=== PATIENT | male | born 1995 | race African-American/Black ===

== ENCOUNTER 2020-08-09 11:42 | Emergency (ER) | payer MEDICAID, SELFPAY ==
[2020-08-09 11:43] VITALS: BP 156/83; PULSE 83; RESP 16; O2SAT 96; BMI 28.5
--- NOTE | 2020-08-09 12:02 | CT_ITS ---
PROCEDURE: CT ABDOMEN PELVIS W CON CLINICAL INDICATION: ABD PAIN Lower abdominal pain with nausea vomiting and diarrhea COMPARISON: No exams were available for comparison TECHNIQUE: IV Contrast: 75ML Isovue 370 Oral Contrast None Axial images obtained with sagittal and coronal reformats. All CT scans at the facility use one or more dose reduction, viz: automated exposure control, ma/kV adjustment per patient size (including targeted exams where dose is matched to indication, i.e. head), or iterative reconstruction technique. FINDINGS: LOWER THORAX: Patchy ground-glass density is present in the right middle lobe incompletely imaged. ABDOMEN & PELVIS: The liver, gallbladder, spleen, adrenal glands, and pancreas have an unremarkable appearance. No renal or ureteral calculi. No hydronephrosis. No intestinal obstruction or free air. No evidence of appendicitis. There is mild diffuse thickening of the colon. There is also mild thickening of the stomach. No acute bony anomaly. IMPRESSION: Mild diffuse thickening of the wall the colon consistent with colitis. There is also mild thickening of the wall the stomach which could be related to gastritis or nondistention Dictated by: Derrick Lebron MD 08/09/2020 18:28 Derrick Lebron MD in [place] 08/09/2020 18:28
[2020-08-09 12:20] LABS: Basophils # 0.2 K/mm3 (0-0.2); Basophils % 0.8 % (0.1-2.0); Eosinophils # 0.2 K/mm3 (0.0-0.4); Eosinophils % 0.9 % (0.1-12.0); Hematocrit 52.4 % (42.0-52.0); Hemoglobin 16.7 g/dL (14.1-18.0); Lymphocytes # 1.9 K/mm3 (0.7-4.5); Lymphocytes % 7.5 % (10-50); Mean Corpuscular HGB Conc 31.8 g/dL (31.8-35.4); Mean Corpuscular Hemoglobin 26.4 pg (27.0-31.2); Mean Platelet Volume 16.2 fl (7.4-10.4); Monocytes # 0.9 K/mm3 (0.1-1.0); Monocytes % 3.5 % (1.7-9.3); Neutrophils # 21.5 K/mm3 (1.8-7.8); Neutrophils % 87.2 % (37.0-80.0); Platelet Count 200 K/mm3 (142-424); Red Blood Count 6.32 M/mm3 (4.60-6.20); Red Cell Distribution Width 18.1 % (11.5-17.5); White Blood Count 24.6 K/mm3 (4.8-10.8)
[2020-08-09 12:24] LABS: Chloride 101 mmol/L (98-107); Sodium 140 mmol/L (136-145)
[2020-08-09 12:25] LABS: MANUAL DIFFERENTIAL MANUAL DIFFERENTIAL (MANUAL DIFF); Potassium 3.4 mmoL/L (3.5-5.1)
[2020-08-09 12:27] LABS: Alanine Aminotransferase 63 U/L (12-78); Alkaline Phosphatase 77 U/L (38-126); Amylase 121 U/L (30-110); Anion Gap 18.4 mEq/L (5-15); Aspartate Amino Transferase 57 U/L (17-59); Bilirubin,Total 1.8 mg/dl (0.2-1.3); Blood Urea Nitrogen 14 mg/dl (9-20); Calcium 10.1 mg/dl (8.4-10.2); Carbon Dioxide 24 mmol/L (22.0-30.0); Creatinine Clearance Estimated 168 mL/min (50-200); Estimated Glomerular Filt Rate 102 ml/min (>60); GFR (African American) 123 ML/MIN (>60); Glucose 156 mg/dl (74-100); Lipase 77 U/L (23-300)
[2020-08-09 12:28] LABS: Albumin Level 5.3 g/dl (3.5-5.0); Albumin/Globulin Ratio 1.4 (1.1-1.8); Globulin 3.7 g/dL (1.3-3.2)
[2020-08-09 12:33] LABS: Lymphocytes % 10 % (10-50); Monocytes % 4 % (2-9); Neutrophils % 86 % (42-76); Total Cells Counted 100
[2020-08-09 12:34] LABS: Platelet Estimate Normal; RBC Morphology Normal
--- NOTE | 2020-08-09 15:06 | HMH.EDABDPAI ---
ED Disposition Clinical Impression: Colitis Disposition: Home, Self-Care Condition on Discharge: Good Instructions: DI for Acute Abdomen, Acute Abdominal Pain Additional Instructions: You were seen on an emergency basis. It is very important that you follow up with your primary care provider and/or specialist as we discussed within 2 days. All labs and imaging were obtained and interpreted here to rule out life threatening emergencies, but your final results should be reviewed by your primary doctor at your follow up appointment. Please return to the emergency department if any of your symptoms worsen, or if they do not improve as we discussed. Prescriptions: Amoxicillin/Potassium Clav [Augmentin 875-125 Tablet] 1 tab PO Q12H 10 Days #20 tab Prescription Printed Ondansetron [Zofran 4mg ODT] 4 mg PO Q6 PRN #9 tab.rapdis PRN Reason: Nausea Prescription Printed Referrals: PCP,Uzma [Primary Care Provider] - Luther Ulloa MD [Staff Physician] - - Critical Care Critical Care Time: No Attestation: On 08/09/20, the high probability of a clinically significant, sudden or life threatening deterioration of the following system(s) required my full and direct attention, intervention and personal management. The time I documented below is in addition to time spent performing reported procedures but includes the following listed in this critical care notation. Medical Decision Making - Medical Records Medical records reviewed: Yes: I reviewed the patient's medical records. - Carlos Inquiry Pt receiving controlled substance: No Vital Signs: 08/09/20 11:43 Pulse Rate [Radial] 83 Respiratory Rate 16 Blood Pressure [Right Arm] 156/83 H Blood Pressure Mean [Right Arm] 107 Blood Pressure Position [Right Arm] Sitting 02 Sat by Pulse Oximetry 96 Oxygen Delivery Method Room Air - Lab Data Lab results reviewed: Yes: I reviewed the patient's lab results. Lab Results 08/09/20 12:05: WBC 24.6 H*, RBC 6.32 H, Hgb 16.7, Hct 52.4 H, MCV 83.0, MCH 26.4 L, MCHC 31.8, RDW 18.1 H, Plt Count 200, MPV 16.2 H, Neut % (Auto) 87.2 H, Lymph % (Auto) 7.5 L, Rosebud % (Auto) 3.5, Eos % (Auto) 0.9, Baso % (Auto) 0.8, Neut # (Auto) 21.5 H, Lymph # (Auto) 1.9, Rosebud # (Auto) 0.9, Eos # (Auto) 0.2, Baso # (Auto) 0.2, Total Counted 100, Neutrophils % (Manual) 86 H, Lymphocytes % (Manual) 10, Monocytes % (Manual) 4, Platelet Estimate Normal, RBC Morphology Normal 08/09/20 12:05: Sodium 140, Potassium 3.4 L, Chloride 101, Carbon Dioxide 24, Anion Gap 18.4 H, BUN 14, Creatinine 0.90, Estimated Creat Clear 168, Estimated GFR 102, Est GFR ( Amer) 123, Glucose 156 H, Calcium 10.1, Total Bilirubin 1.8 H, AST 57, ALT 63, Alkaline Phosphatase 77, Total Protein 9.0 H, Albumin 5.3 H, Globulin 3.7 H, Albumin/Globulin Ratio 1.4, Amylase 121 H, Lipase 77 Result diagrams: 08/09/20 12:05 08/09/20 12:05 Orders (Tests/Meds): ED MEDICATIONS Discontinued Medications Generic Name Dose Route Start Last Admin Trade Name Freq PRN Reason Stop Dose Admin Amoxicillin/Clavulanate Potassium 1 each 08/09/20 14:57 08/09/20 15:03 Amoxicillin/Pot Clavulan 500mg Tablet PO 08/09/20 14:58 1 each ONCE ONE Administration Protocol Belladonna Alkaloids 60 ml 08/09/20 12:11 08/09/20 12:12 Gi Cocktail 60ml Udc PO 08/09/20 12:12 60 ml ONCE ONE Administration Sodium Chloride 1,000 mls @ 999 mls/hr 08/09/20 12:15 08/09/20 12:08 Sod Chlor 0.9% 1000ml Bag IV 08/09/20 13:15 999 mls/hr .Q1H1M ELIZABETH Administration Iopamidol 75 ml 08/09/20 13:07 08/09/20 13:08 Iopamidol-370 (76%);100ml Bottle IV 08/09/20 13:08 75 ml ONCE ONE Administration Ondansetron HCl 4 mg 08/09/20 12:03 08/09/20 12:07 Ondansetron 4mg/2ml Vial IV 08/09/20 12:04 4 mg ONCE ONE Administration Promethazine HCl 12.5 mg 08/09/20 13:55 08/09/20 13:56 Promethazine Hcl 25mg/Ml 1ml Vial IV 08/09/20 13:56 12.5 mg ONCE ONE Administ
[2020-08-09 15:08] LABS: Microscopic, Urine URINE MICROSCOPIC (MICROSCOPIC)
[2020-08-09 15:14] LABS: Appearance,Urine CLEAR (Clear); Bilirubin,Urine Negative (Negative); Blood, Urine Negative (Negative); Color,Urine YELLOW (Yellow); Glucose,Urine (UA) Negative (Negative); Ketones,Urine 1+ (Negative); Leukocyte Esterase,Urine Negative (Negative); Nitrate,Urine Negative (Negative); Protein,Urine Negative (Negative); Specific Gravity, Urine 1.015 (1.005-1.030); Urobilinogen,Urine 0.2 EU/dl (0.2)
[2020-08-09 15:26] LABS: Squamous Epithelial Cell,Urine Occasional #/hpf (0-5); WBC,Urine Occasional #/hpf (0-3)
[2020-08-09 15:42] VITALS: BP 124/77; PULSE 71; RESP 18; O2SAT 100
--- NOTE | 2020-08-09 15:58 | PC.NURSE ---
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
[2020-08-09 16:12] VITALS: BP 163/98; PULSE 71; RESP 18; O2SAT 97
--- NOTE | 2020-08-09 18:52 | PC.NURSE ---
PT CONTINUES TO C/O NAUSEA, VOMITING. PT STATES I'M REALLY STRUGGLING .
[2020-08-09 19:18] VITALS: BP 124/75; PULSE 78; RESP 16; TEMP 36.8; O2SAT 98
== END 2020-08-09 19:21 | disposition home or self-care (01) ==
PROVIDERS: Emergency Provider Physician Assistant
DX: K52.9 Noninfective gastroenteritis and colitis, unspecified (principal)
CPT/HCPCS: 74177; 80053; 81001; 82150; 83690; 85007; 85025; 96365; 96375; 96376; 99283; J2405; Q9967

== ENCOUNTER 2023-05-01 18:54 | Emergency (ER) | payer SELFPAY ==
[2023-05-01 18:54] VITALS: BP 130/91; PULSE 110; RESP 24; TEMP 36.9; O2SAT 97; BMI 26.2
[2023-05-01 19:06] VITALS: BMI 36.8
--- NOTE | 2023-05-01 19:07 | ECG_ITS ---
APPROVED REPORT Exam: Resting ECG HR:137 bpm ECG Measurements Heart Rate 137 AXES MO 138 P 76 QRSd 94 QRS 14 QT 348 T 74 QTc 428 Conclusion SINUS TACHYCARDIA INDETERMINATE AXIS MODERATE ST DEPRESSION [0.05+ mV ST DEPRESSION] ABNORMAL ECG UNCONFIRMED REPORT Electronically signed by : Hans Pulliam MD 05/02/2023 19:53:53
--- NOTE | 2023-05-01 19:07 | XR_ITS ---
PROCEDURE INFORMATION: Exam: XR Chest Exam date and time: 05/01/23 07:10 PM Age: 27 years old Clinical indication: Chest wall pain; Additional info: Chest pain TECHNIQUE: Imaging protocol: Radiologic exam of the chest. Views: 1 view. COMPARISON: CT ABDOMEN PELVIS W CON 08/09/20 12:43 PM FINDINGS: Lungs: Unremarkable. No consolidation. Pleural spaces: Unremarkable. No pleural effusion. No pneumothorax. Heart/Mediastinum: Unremarkable. No cardiomegaly. Bones/joints: Unremarkable. IMPRESSION: No acute findings.
[2023-05-01 19:13] LABS: Basophils % 0.4 % (0.1-2.0); Eosinophils # 0.1 K/mm3 (0.0-0.4); Eosinophils % 1.2 % (0.1-12.0); Hematocrit 50.3 % (42.0-52.0); Hemoglobin 16.5 g/dL (14.1-18.0); Lymphocytes # 1.9 K/mm3 (0.7-4.5); Lymphocytes % 15.9 % (10-50); Mean Corpuscular HGB Conc 32.8 g/dL (31.8-35.4); Mean Corpuscular Hemoglobin 25.7 pg (27.0-31.2); Mean Corpuscular Volume 78.5 fl (80-94); Mean Platelet Volume 8.5 fl (7.4-10.4); Monocytes # 0.8 K/mm3 (0.1-1.0); Monocytes % 7.1 % (1.7-9.3); Neutrophils % 75.5 % (37.0-80.0); Platelet Count 252 K/mm3 (142-424); Red Blood Count 6.41 M/mm3 (4.60-6.20); Red Cell Distribution Width 14.8 % (11.5-17.5); White Blood Count 11.9 K/mm3 (4.8-10.8)
[2023-05-01 19:14] VITALS: PULSE 112
[2023-05-01 19:14] LABS: Chloride 100 mmol/L (98-107)
[2023-05-01 19:15] LABS: Potassium 3.3 mmoL/L (3.5-5.1); Sodium 135 mmol/L (136-145)
[2023-05-01 19:17] LABS: Alanine Aminotransferase 61 U/L (12-78); Albumin Level 5.3 g/dl (3.5-5.0); Albumin/Globulin Ratio 1.3 (1.1-1.8); Alkaline Phosphatase 113 U/L (38-126); Anion Gap 18.3 mEq/L (5-15); Aspartate Amino Transferase 155 U/L (17-59); Bilirubin,Total 2.5 mg/dl (0.2-1.3); Blood Urea Nitrogen 23 mg/dl (9-20); Carbon Dioxide 20 mmol/L (22.0-30.0); Creatinine Clearance Estimated 116 mL/min (50-200); Estimated Glomerular Filt Rate 65 ml/min (>60); GFR (African American) 79 ML/MIN (>60); Globulin 4.2 g/dL (1.3-3.2); Total Protein,Serum 9.5 g/dl (6.3-8.2)
[2023-05-01 19:18] LABS: Calcium 10.5 mg/dl (8.4-10.2); Glucose 164 mg/dl (74-100)
[2023-05-01 19:30] LABS: Troponin I < 0.01 ng/ml (0.00-0.034)
--- NOTE | 2023-05-01 19:34 | CT_ITS ---
PROCEDURE INFORMATION: Exam: CT Abdomen And Pelvis With Contrast Exam date and time: 05/01/23 07:45 PM Age: 27 years old Clinical indication: Abdominal pain; Generalized; Additional info: Severe epigastric abd pain, n/v TECHNIQUE: Imaging protocol: Computed tomography of the abdomen and pelvis with contrast. Radiation optimization: All CT scans at this facility use at least one of these dose optimization techniques: automated exposure control; mA and/or kV adjustment per patient size (includes targeted exams where dose is matched to clinical indication); or iterative reconstruction. Contrast material: ISOVUE; Contrast volume: 75 ml; Contrast route: IV; REPORTING DATA: Count of CT and Cardiac NM exams in prior 12 months: This patient has received 0 known CTs and 0 known cardiac nuclear medicine studies in the 12 months prior to the current study. COMPARISON: CT ABDOMEN PELVIS W CON 08/09/20 12:43 PM FINDINGS: Tubes, catheters and devices: None noted. Lungs: Lung bases appear clear. Heart: No significant coronary calcifications. No cardiomegaly. No significant pericardial effusion. Liver: Normal. No mass. Gallbladder and bile ducts: Normal. No calcified stones. No ductal dilation. Pancreas: Normal. No ductal dilation. Spleen: Normal. No splenomegaly. Adrenal glands: Normal. No mass. Kidneys and ureters: Normal. No hydronephrosis. Stomach and bowel: Unremarkable. No obstruction. No mucosal thickening. Appendix: Appendix is well visualized. No evidence of appendicitis. Intraperitoneal space: Unremarkable. No free air. No significant fluid collection. Retroperitoneal space: No significant retroperitoneal inflammatory changes are noted. Vasculature: Unremarkable. No abdominal aortic aneurysm. Lymph nodes: Unremarkable. No enlarged lymph nodes. Urinary bladder: Unremarkable as visualized. Reproductive: Unremarkable as visualized. Bones/joints: Unremarkable. No acute fracture. Soft tissues: Unremarkable. IMPRESSION: No acute findings.
--- NOTE | 2023-05-01 19:40 | PC.NURSE ---
PT gone to RAD via wheelchair
[2023-05-01 19:41] LABS: Lipase 106 U/L (23-300)
[2023-05-01 19:42] LABS: INR 0.99 (0.9-1.1); Prothrombin Time 10.7 seconds (10.1-12.5)
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
[2023-05-01 20:00] VITALS: BP 140/96; PULSE 59; RESP 13; O2SAT 100
[2023-05-01 20:31] VITALS: BP 116/66; PULSE 78; RESP 16; O2SAT 100
[2023-05-01 21:00] VITALS: BP 110/57; PULSE 71; RESP 16; O2SAT 96
[2023-05-01 21:36] VITALS: BP 114/79; PULSE 74; RESP 16; TEMP 36.6
== END 2023-05-01 21:38 | disposition home or self-care (01) ==
PROVIDERS: Emergency Provider Student in an Organized Health Care Education/Training Program
DX: R07.89 Other chest pain (principal); K70.10 Alcoholic hepatitis without ascites; R11.2 Nausea with vomiting, unspecified; F17.210 Nicotine dependence, cigarettes, uncomplicated
CPT/HCPCS: 71045; 74177; 80053; 83690; 84484; 85025; 85610; 93005; 96361; 96374; 96375; 99285; J2405; Q9967

== ENCOUNTER 2023-09-04 01:28 | Emergency (ER) | payer SELFPAY ==
[2023-09-04 01:30] VITALS: BP 151/77; PULSE 92; RESP 18; TEMP 36.5; O2SAT 98; BMI 28.0
[2023-09-04 03:26] VITALS: BP 109/59; PULSE 72; RESP 16; TEMP 36.7; O2SAT 98
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
== END 2023-09-04 03:28 | disposition home or self-care (01) ==
PROVIDERS: Emergency Provider Emergency Medicine
DX: Z04.1 Encounter for examination and observation following transport accident (principal)
CPT/HCPCS: 99281

== ENCOUNTER 2025-02-22 04:51 | Emergency (ER) | payer MEDICAID, SELFPAY ==
[2025-02-22 05:01] VITALS: BP 153/92; PULSE 110; RESP 16; TEMP 36.6; O2SAT 99; BMI 28.7
--- NOTE | 2025-02-22 05:11 | XR_ITS ---
PROCEDURE INFORMATION: Exam: XR Right Knee Exam date and time: 02/22/2025 5:27 AM Age: 29 years old Clinical indication: Pain; Knee; Right; Additional info: Swelling, poss patellar dislocation/tendon rupture TECHNIQUE: Imaging protocol: Radiologic exam of the right knee. Views: 4 or more views. COMPARISON: No relevant prior studies available. FINDINGS: Bones/joints: Bony excrescence is noted along the femoral origin of the medial collateral ligament. The medial collateral ligament appears thickened and hyperattenuating by radiographic standards. Thickened patellar tendon with adjacent peritendinous subcutaneous inflammatory change. Patellar appears significantly superior in positioning. Soft tissues: See Bones/joints finding. IMPRESSION: 1. Findings suggestive of complete patellar tendon rupture. MRI should be obtained for confirmation. 2. Acute on chronic injury appearance of the medial collateral ligament. Attention on follow-up recommended MRI.
--- NOTE | 2025-02-22 05:14 | HMH.EDGENADL ---
Discharge Plan Disposition Patient Disposition: Home, Self-Care Condition: Good Prescriptions Prescriptions: New oxycodone 5 mg tablet 5 mg PO Q8H PRN (Reason: pain) Qty: 6 0RF No Action amoxicillin-pot clavulanate 1 EACH tablet 1 tab PO Q12H 10 Days Qty: 20 0RF ondansetron 4 MG tablet,disintegrating 4 mg PO Q6 PRN (Reason: Nausea) Qty: 9 0RF ondansetron 4 mg tablet,disintegrating 4 mg PO Q6H PRN (Reason: nausea and vomiting) 5 Days Qty: 20 0RF Referrals Follow up/Referrals: Alfredito Domingo, [Staff Physician] - See instructions Provider,Referral, [Primary Care Provider] - See instructions Activity Restrictions/Add. Instructions Additional Instructions/Restrictions: Please follow-up with Ortho soon as possible. Please keep the knee immobilizer in place, please use crutches and do not bear weight on the knee until follow-up. Please take Tylenol and ibuprofen as needed for pain. I also sent a small amount of oxycodone for severe pain. Clinical Impressions Clinical Impression: Patellar tendon rupture Qualifiers: Encounter type: initial encounter Laterality: right Qualified Code(s): S86.811A - Strain of other muscle(s) and tendon(s) at lower leg level, right leg, initial encounter Print Language Print Language: Citizen Of [place] Discharge ED Provider: Cisco [place] General Adult HPI General Chief complaint: Extremity Injury, Lower Stated complaint: right knee cap dislocated Time Seen by Provider: 02/22/25 04:55 Mode of Arrival: Wheelchair Source of Information: Patient Description of Symptoms (Recalled from ER Triage Doc. by RN): patient fell while performing tonight and feels like his Right knee is dislocated History of Present Illness HPI narrative: 29-year-old male with no significant past medical history presents for right knee pain and swelling. 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 He has been unable to bear weight since that time. He denies any other injuries or significant trauma. Related Data Previous Rx's ?Medication ?Instructions ?Recorded amoxicillin 875 mg-potassium 1 tab PO Q12H 10 days #20 tabs 08/09/20 clavulanate 125 mg tablet ondansetron 4 mg disintegrating 4 mg PO Q6 PRN Nausea ##9 08/09/20 tablet ondansetron 4 mg disintegrating 4 mg PO Q6H PRN nausea and 05/01/23 tablet vomiting 5 days #20 tabs oxycodone 5 mg tablet 5 mg PO Q8H PRN pain #6 tabs 02/22/25 Allergies Allergy/AdvReac Type Severity Reaction Status Date / Time INGREDIENT: NO KNOWN - NO Allergy Unknown Uncoded 09/20/17 15:32 KNOWN DRUG ALLERGY [facility] Disclaimer: The information contained in this section may have been updated after the patient was seen, as this information can be updated by other users. Social History Smoking Status: Current every day smoker tobacco type: cigarettes packs per day: 0 alcohol intake: never current occupational status: other Travel in the last 8 weeks?: None household members: other housing: other Other Medical History Have you received the Flu Vaccine for this season: No Have you received the Pneumonia Vaccine: No ROS Obtained: Yes All systems reviewed & no additional complaints except as documented Physical Exam General General appearance: alert and in no apparent distress Head Head exam: atraumatic and normocephalic Eye Eye exam: Present normal appearance, PERRL and EOMI ENT ENT exam: Present normal oropharynx and normal external ear exam Neck Neck exam: Present normal inspection and full ROM Chest Chest inspection: Present normal inspection and symmetric chest wall rise; Absent tenderness Respiratory Respiratory exam: Present normal lung sounds bilaterally; Absent respiratory distress Cardiovascular Cardiovascular exam: Present regular rate and normal rhythm Abdominal Exam Abdominal exam: Present soft; Absent distention, tenderness or guarding Extremities Exam Extremities exam: Present other (Right lower extremity: High riding patella, no active or passive straight leg raise, significant joint effusion noted) Back Exam Back exam: Present normal inspection; Absent tenderness Neurological Exam Neurological exam: Present alert and oriented X3; Absent motor sensory deficit Psychiatric Psychiatric exam: Present normal affect and normal mood Skin Skin exam: Present warm, dry and normal color Lymphatic Lymphatic Findings: no adenopathy Medical Decision Making Medical Records Medical records reviewed: Yes I reviewed the patient's medical records. Screening: Per USPSTF and CDC recommendations, given the prevalence of disease in our region, it is our hospital?s policy to screen for HIV and viral Hepatitis for all patients aged 18 and over and those with ongoing risk factors. Carlos Inquiry Pt receiving controlled substance: No Carlos was queried for this patient: No Vital Signs: 02/22/25 05:01 02/22/25 06:04 Temperature 97.8 F 98 F Temperature Source Oral Oral Pulse Rate 87 Pulse Rate [Right Radial] 110 H Respiratory Rate 16 18 Blood Pressure 150/80 H Blood Pressure [Right Radial Artery] 153/92 H Blood Pressure Mean [Right Radial Artery] 112 Blood Pressure Source Automatic Cuff Blood Pressure Source [Right Radial Artery] Automatic Cuff Blood Pressure Position Sitting Blood Pressure Position [Right Radial Artery] Sitting 02 Sat by Pulse Oximetry 99 Oxygen Delivery Method Room Air Room Air Lab Data Lab results reviewed: Yes I reviewed the patient's lab results. Orders (Tests/Meds): ED MEDICATIONS Discontinued Medications Generic Name Dose Route Start Last Admin Trade Name Juliana PRN Reason Stop Dose Admin Acetaminophen 1,000 mg 02/22/25 05:11 02/22/25 05:21 Acetaminophen 500mg Tab PO 02/22/25 05:12 1,000 mg ONCE ONE Administration Ketorolac Tromethamine 30 mg 02/22/25 05:11 02/22/25 05:21 Ketorolac 30mg/Ml Vial IM 02/22/25 05:12 30 mg ONCE ONE Administration Morphine Sulfate 4 mg 02/22/25 05:11 02/22/25 05:22 Morphine 2mg/Ml Syringe IM 02/22/25 05:12 4 mg ONCE ONE Administration ORDERS Category Date Time Status XR knee RT 4V Stat Exams 02/22/25 05:11 Completed Medical Decision Narrative: 29-year-old male without significant past medical history presents with acute atraumatic knee pain, felt his knee pop and his patella move 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 History was obtained via interactive discussion with patient. On arrival, patient is [afebrile, hemodynamically stable, satting appropriately, alert, oriented x4, GCS 15], moving all extremities spontaneously. Full physical exam performed and significant for high riding patella, no ability to perform straight leg raise, significant knee effusion Differential includes but is not limited to patellar fracture, patellar tendon rupture, internal derangement of the knee. Patient was given IM Toradol and morphine, p.o. Tylenol for symptomatic management and correction of underlying abnormalities. Workup initiated including radiographs of the right knee and patella. On my independent interpretation of radiographs, the patella is high riding consistent with patella tendon rupture. Patient was placed in a knee immobilizer and given crutches with instructions to remain nonweightbearing and to call and follow-up with our orthopedic clinic as soon as possible. Patient was discharged with a short course of opiate pain medication due to significant pain and swelling in the knee. Return precautions given. Procedures Risk/Benefits of Procedure(s) Were Explained: Yes Critical Care Critical Care Time Critical Care Time: No
[2025-02-22] MEDS: KETOROLAC 30MG/ML VIAL 30 MG IM (05:21)
[2025-02-22] MEDS: ACETAMINOPHEN 500MG TAB 1000 MG PO (05:21)
[2025-02-22] MEDS: MORPHINE 2MG/ML SYRINGE 4 MG IM (05:22)
[2025-02-22 06:04] VITALS: BP 150/80; PULSE 87; RESP 18; TEMP 36.6; O2SAT 100
== END 2025-02-22 06:05 | disposition home or self-care (01) ==
PROVIDERS: Emergency Provider Emergency Medicine
DX: S86.811A Strain of other muscle(s) and tendon(s) at lower leg level, right leg, initial encounter (principal)
CPT/HCPCS: 73564; 96372; 99284; J1885; J2270

== ENCOUNTER 2025-03-18 14:36 | Outpatient (CLI) | payer MEDICAID, SELFPAY ==
[2025-03-18 15:09] LABS: Basophils % 0.7 % (0.1-2.0); Eosinophils # 0.1 Kmm3 (0.0-0.4); Eosinophils % 2.3 % (0.1-12.0); Hemoglobin 14.3 g/dL (14.1-18.0); Immature Granulocytes # 0.01 10^3uL; Immature Granulocytes % 0.2 %; Lymphocytes # 1.3 K/mm3 (0.7-4.5); Mean Corpuscular HGB Conc 33.3 g/dL (31.8-35.4); Mean Corpuscular Hemoglobin 26.4 pg (27.0-31.2); Mean Corpuscular Volume 79.3 fl (80-94); Mean Platelet Volume 10.7 fl (7.4-10.4); Monocytes # 0.5 K/mm3 (0.1-1.0); Monocytes % 8.4 % (1.7-9.3); Neutrophils # 3.8 K/mm3 (1.8-7.8); Neutrophils % 65.4 % (37.0-80.0); Nucleated Red Blood Cells # 0 10^3/uL; Nucleated Red Blood Cells % 0 %; Platelet Count 249 K/mm3 (142-424); Red Blood Count 5.42 M/mm3 (4.60-6.20); Red Cell Distribution Width-SD 40.1 fL; White Blood Count 5.7 K/mm3 (4.8-10.8)
[2025-03-18 15:29] LABS: Anion Gap 8.3 mEq/L (5-15); Carbon Dioxide 26 mmol/L (22.0-30.0); Chloride 106 mmol/L (98-107); Potassium 4.3 mmoL/L (3.5-5.1); Sodium 136 mmol/L (136-145)
[2025-03-18 15:30] LABS: Blood Urea Nitrogen 15 mg/dl (9-20); Calcium 10.5 mg/dl (8.4-10.2); Estimated Glomerular Filt Rate 78 ml/min (>60); GFR (African American) 94 ML/MIN (>60); Glucose 106 mg/dl (74-100)
== END 2025-03-18 23:59 | disposition home or self-care (01) ==
LOC: LAB 14:36
PROVIDERS: Visit Provider Orthopaedic Surgery
DX: S86.811A Strain of other muscle(s) and tendon(s) at lower leg level, right leg, initial encounter (principal)
CPT/HCPCS: 36415; 80048; 85025

== ENCOUNTER 2025-03-19 11:21 | Day surgery (SDC) | payer MEDICAID, SELFPAY ==
[2025-03-19] VITALS (9 sets, daily range): BP systolic 116–149; BP diastolic 67–85; PULSE 56–101; RESP 14–17; TEMP 36.4–36.8; O2SAT 96–99; BMI 28.7
[2025-03-19] MEDS: LACTATED RINGERS 1000ML 1,000 ML 100 ML IV (11:47)
[2025-03-19] MEDS: CEFAZOLIN SODIUM 2 GM in 0.9 % SODIUM CHLORIDE 100 ML IV (13:54)
--- NOTE | 2025-03-19 16:08 | EXP.OP.NOTE ---
Date of procedure: 03/19/25 Pre-op Diagnosis:: Right patella tendon rupture full-thickness tear Post-op Diagnosis:: Same Procedure performed:: Open repair of right patella tendon Surgeon:: Alfredito Domingo DO Vice President Of Talent Management(s):: Chilango AMOR Anesthesia: GETA Estimated blood loss (mL): 0 Operative findings:: Full-thickness patella tendon rupture at the distal pole of the patella Operative note:: Patient identified preoperatively. Right lower extremity marked with yes my initials. Underwent a block with anesthesia taken the operating room. Placed upon operating bed. Right lower extremity prepped and draped normal sterile fashion on the operating bed. Once prepped and draped final operative timeout performed to identify proper patient procedure and extremity. Everyone involved in the case agreed. There is no counter indications to beginning. He did receive preoperative antibiotics. Marking pen was used to make planned in midline incision of the anterior aspect of the knee. Esmarch was used to exsanguinate the extremity and pneumatic tourniquet inflated to 300 mmHg. Skin knife was used incise through skin careful dissection was taken down sharply to the soft tissues and then blunt dissection was taken down to expose full-thickness tearing of the patella tendon from the inferior pole of the patella. There was significant scarring around this area of the tendon which was debrided directly the free edge of the patella tendon was then identified and debrided the inferior aspect of the patella was also debrided for visualization. Subsequent repair was undertaken by placing locking alternating Krak?w stitches starting at the proximal aspect of the tendon with being distally and then back up proximally this was done on the medial aspect of the tendon. This process was then repeated for the lateral aspect of the tendon as well this gave to good repair stitches in both edges of the patella tendon at that time attention was brought to the inferior surface of the patella. Inferior surface of the patella was drilled with a drill for a 4.75 mm swivel lock anchor and tapped. Then repair was completed by syncing the swivel lock anchors into the inferior pole of patella and reducing patella tendon to the inferior surface of the patella. Irrigation wounds performed. Flexion up to 40 degrees was taken very stable no gapping of the repair. Attention is then brought to repair of the retinaculum which was performed under direct suturing with the #2 FiberWire suture. Irrigation repeated deep layers closed with 0 Vicryl subcutaneous with 2-0 Vicryl surgical clips in the skin for closure sterile knee dressing placed and placed in a extension brace which will be exchanged for T ROM brace in recovery room. Locked in extension. Condition: stable Disposition: PACU Complications:: None apparent
--- NOTE | 2025-03-19 16:11 | P.PNANES_ITS ---
[facility] Anesthesia Record Part I Anesthesia Record I Intake, IV Amount: 800 Hydration: Adequate Estimated blood loss (mL): 0 Urine output (mL): 0 Blood Products used (#): none Blood Pressure: 128/70 SaO2: 99 Pulse Rate: 58 Airway Patency: Patent Respiratory Rate: 14 Temperature: 97.5 F Patient is:: Oral/Nasal airway and Somnolent Stable to PACU at:: 16:08
--- NOTE | 2025-03-19 17:36 | SUR.PHASEII ---
unable to make follow up appointment for pt d/t being after hours and clinic was closed. instructions given to pt's significant other to call 1st thing in the morning to schedule. s/o verbalized understanding
--- NOTE | 2025-03-21 10:33 | EXP.ANES.II ---
[facility] Anesthesia Record Part II Anesthesia Record Part II Discharge Time: 16:38 Destination: [facility] PACU nurse assessment reviewed?: Yes Patient Condition:: Good Anesthesia Complications:: None Swallowing reflex intact?: Yes Airway Patency: Patent Cyanosis?: No Blood Pressure: 129/80 SaO2: 97 Respiratory Rate: 17 Pulse Rate: 56 Temperature: 97 F Mental Status: Alert & Oriented Pain level:: 0 Nausea and/or vomitting:: None Intake, IV Amount: 1,200 Hydration: Adequate
[2025-03-21 10:34] VITALS: BP 129/80; PULSE 56; RESP 17; TEMP 36.1; O2SAT 97
== END 2025-03-19 17:20 | disposition home or self-care (01) ==
PROVIDERS: Visit Provider Orthopaedic Surgery
PROC: (CPT 27380; principal; 2025-03-19 12:45)
DX: S76.111A Strain of right quadriceps muscle, fascia and tendon, initial encounter (principal); X58.XXXA Exposure to other specified factors, initial encounter; Y93.89 Activity, other specified; Y92.89 Other specified places as the place of occurrence of the external cause; Y99.8 Other external cause status; F17.210 Nicotine dependence, cigarettes, uncomplicated
CPT/HCPCS: 27380; 96374; 97760; C1713; J0665; J0690; J1100; J1596; J2003; J2250; J2704; J3010; J7120

== ENCOUNTER 2025-03-24 06:55 | Observation (INO) | payer MEDICAID, SELFPAY ==
[2025-03-24] VITALS (16 sets, daily range): BP systolic 124–181; BP diastolic 57–110; PULSE 67–95; RESP 13–24; TEMP 36.7–37; O2SAT 96–100; BMI 29.3; BMI 33.4
--- NOTE | 2025-03-24 07:01 | ED_ITS ---
Discharge Plan Disposition Patient Disposition: Admitted Condition: Fair Clinical Impressions Clinical Impression: Alcohol withdrawal Discharge ED Provider: Kate Silva General Adult HPI General Chief complaint: Abdominal Pain Stated complaint: Vomiting, SOB, Weakness, (Colitis) Time Seen by Provider: 03/24/25 07:01 History of Present Illness HPI narrative: Patient is a 29-year-old with past medical history significant for alcohol use disorder last drink yesterday evening presents to the emergency department with nausea vomiting diarrhea since this morning. Patient has had a recent patellar tendon rupture repair. Last drink was yesterday evening drink of choice Jesus Christie unable to say how much he drinks. Patient is complaining of multiple episodes of nonbloody vomit nonbloody diarrhea. No history of alcohol withdrawal seizures. No abdominal surgery. No dysuria chest pain shortness of breath fevers or chills. Related Data Previous Rx's ?Medication ?Instructions ?Recorded ondansetron 4 mg disintegrating 4 mg PO Q6H PRN nausea and 05/01/23 tablet vomiting 5 days #20 tabs oxycodone 5 mg tablet 5 mg PO Q8H PRN pain #6 tabs 02/22/25 hydrocodone 5 mg-acetaminophen 325 1 tab PO Q4H PRN po st op pain #42 03/19/25 mg tablet tabs Allergies Allergy/AdvReac Type Severity Reaction Status Date / Time No Known Allergies Allergy Verified 03/19/25 11:39 [facility] Disclaimer: The information contained in this section may have been updated after the patient was seen, as this information can be updated by other users. Medical History No significant past medical history No significant past medical history Surgical History (Updated 03/24/25 @ 11:47 by Halley Tapia RN) H/O right knee surgery Family History Other No significant family history Social History (Updated 03/24/25 @ 11:48 by Halley Tapia RN) Smoking Status: Current every day smoker tobacco type: cigarettes packs per day: 0 alcohol intake: current current occupational status: other Travel in the last 8 weeks?: None household members: other housing: other Have you lived/traveled outside [place] in past 30 days?: No Contact w/someone who lives/traveled outside [place] past 30 days?: No Exposure to someone with infectious disease in past 14 days?: No Do you have a fever (greater than 100.4 F or 38 C)?: No Have you tested positive for COVID-19?: No Exposed to someone with COVID-19 in past 14 days?: No Do you have a sore throat?: No Do you have a cough?: No Do you have any weakness?: Yes Do you have any diarrhea?: No Are you experiencing any unusual bleeding?: No Do you have any muscle aches/pain?: No Do you have any abdominal pain?: Yes Are you experiencing loss of taste or smell?: No Other Medical History Have you received the Flu Vaccine for this season: No Have you received the Pneumonia Vaccine: No ROS Obtained: Yes All systems reviewed & no additional complaints except as documented Physical Exam General General appearance: alert Comment: diaphoretic, retching, rolling in bed Head Head exam: atraumatic Eye Eye exam: Present PERRL and EOMI ENT ENT exam: Present mucous membranes dry Respiratory Respiratory exam: Present normal lung sounds bilaterally and other (tachypnea) Cardiovascular Cardiovascular exam: Present regular rate and normal rhythm Abdominal Exam Abdominal exam: Present soft; Absent distention, tenderness, guarding, rebound or rigidity exam: Present normal inspection Extremities Exam Extremities exam: Present normal capillary refill (delayed capillary refill) Neurological Exam Neurological exam: Present alert and oriented X3; Absent motor sensory deficit Psychiatric Psychiatric exam: Present agitated Medical Decision Making Medical Records Screening: Per USPSTF and CDC recommendations, given the prevalence of disease in our region, it is our hospital?s policy to screen for HIV and viral Hepatitis for all patients aged 18 and over and those with ongoing risk factors. Carlos Inquiry Pt receiving controlled substance: No Vital Signs: 03/24/25 07:15 03/24/25 07:57 03/24/25 08:00 Temperature 98.5 F Temperature Source Oral Pulse Rate 90 95 H Pulse Rate [Right] 92 H Respiratory Rate 24 Blood Pressure 145/86 H 142/93 H Blood Pressure [Right Arm] 165/91 H Blood Pressure Mean Blood Pressure Mean [Right Arm] 115 02 Sat by Pulse Oximetry 99 100 99 Oxygen Delivery Method 03/24/25 08:30 03/24/25 09:01 03/24/25 09:31 Temperature Temperature Source Pulse Rate 67 Pulse Rate [Right] Respiratory Rate 16 17 18 Blood Pressure 156/90 H 149/84 H 145/97 H Blood Pressure [Right Arm] Blood Pressure Mean Blood Pressure Mean [Right Arm] 02 Sat by Pulse Oximetry 97 96 Oxygen Delivery Method 03/24/25 10:00 03/24/25 10:30 03/24/25 11:01 Temperature Temperature Source Pulse Rate 68 73 Pulse Rate [Right] Respiratory Rate 19 20 20 Blood Pressure 165/105 H 181/110 H 160/90 H Blood Pressure [Right Arm] Blood Pressure Mean 123 113 Blood Pressure Mean [Right Arm] 02 Sat by Pulse Oximetry 96 96 Oxygen Delivery Method 03/24/25 11:24 03/24/25 11:27 Temperature 98.0 F Temperature Source Pulse Rate 73 Pulse Rate [Right] Respiratory Rate 13 Blood Pressure 160/90 H Blood Pressure [Right Arm] Blood Pressure Mean Blood Pressure Mean [Right Arm] 02 Sat by Pulse Oximetry Oxygen Delivery Method Room Air Lab Data Lab Results 03/24/25 07:14: VBG pH 7.67 H, VBG pCO2 18.8 L, VBG pO2 138.9 H, VBG HCO3 21.0 L , VBG Total CO2 21.5 L, VBG O2 Saturation 99.4 H, VBG Base Excess 0.4, VBG Lactic Acid 3.8 H 03/24/25 07:16: WBC 15.1 H, RBC 5.58, Hgb 14.6, Hct 43.0, MCV 77.1 L, MCH 26.2 L , MCHC 34.0, RDW 13.5, Plt Count 243, MPV 10.8 H, Neut % (Auto) 79.7, Lymph % (Auto) 12.4, Hern[place] % (Auto) 6.7, Eos % (Auto) 0.4, Baso % (Auto) 0.5, Neut # (Auto) 12.0 H, Lymph # (Auto) 1.9, [place] # (Auto) 1.0, Eos # (Auto) 0.1, Baso # (Auto) 0.1, ESR 13, PT 10.3, INR 0.92, APTT 22.0 L, Sodium 138, Potassium 3.6, Chloride 104, Carbon Dioxide 19 L, Anion Gap 18.6 H, BUN 21 H, Creatinine 1.00, Estimated Creat Clear 161, Estimated GFR 87, Est GFR ( Amer) 105, Glucose 176 H, Calcium 10.3 H, Magnesium 1.6, Total Bilirubin 0.8, AST 47, ALT 53, Alkaline Phosphatase 78, Total Creatine Kinase 232 H, C-Reactive Protein 8.9 H, Total Protein 8.5 H, Albumin 4.7, Globulin 3.8 H, Albumin/Globulin Ratio 1.2, Lipase 83, Salicylates < 1.0 L, Acetaminophen < 10 L, Plasma/Serum Alcohol < 10, HCV Ab KASEY w/Rflx PCR Qn Negative, HIV Ag/Ab Combo Qual Negative 03/24/25 10:45: Urine Opiates Screen Negative, Urine Methadone Screen Negative, Ur Barbituates Screen Negative, Ur Phencyclidine Scrn Negative, Ur Amphetamines Screen Negative, U Benzodiazepines Scrn Positive H, Urine Cocaine Screen Negative, U Marijuana (THC) Screen Positive H 03/24/25 07:16 03/24/25 07:16 Orders (Tests/Meds): ED MEDICATIONS Generic Name Dose Route Start Last Admin Trade Name Freq PRN Reason Stop Dose Admin Acetaminophen 650 mg 03/24/25 11:11 Acetaminophen 325mg Tab PO 04/23/25 11:10 Q4HP PRN Fever or Mild Pain (1-3) Diazepam 10 mg 03/24/25 07:14 03/24/25 07:20 Diazepam 10mg/2ml Syringe IV 04/23/25 07:13 10 mg Q1HP PRN Administration CIWA >16 Diazepam 5 mg 03/24/25 07:14 Diazepam 10mg/2ml Syringe IV 04/23/25 07:13 Q1HP PRN CIWA Score 8-15 Diazepam 5 mg 03/24/25 07:14 Diazepam 5mg Tablet PO 04/23/25 07:13 Q6HP PRN CIWA 2-7 Enoxaparin Sodium 40 mg 03/25/25 09:00 Enoxaparin 40mg/0.4ml Syringe SUBCUT 04/24/25 08:59 DAILY ELIZABETH Folic Acid 1 mg 03/24/25 09:00 03/24/25 12:24 Folic Acid 1mg Tablet PO 04/23/25 08:59 1 mg DAILY ELIZABETH Administration Multivitamins 1 each 03/24/25 17:00 Multivitamin Tablet PO 04/23/25 16:59 1700 ELIZABETH Ondansetron HCl 4 mg 03/24/25 11:11 Ondansetron 4mg/2ml Vial IV 04/23/25 11:10 Q6HP PRN Nausea Sodium Chloride 10 ml 03/24/25 08:27 03/24/25 08:28 Sodium Chloride 0.9% 10ml Syr (Rad Only) IV 04/23/25 08:26 10 ml NEEDED PRN Administration Maintain IV Site Thiamine HCl 100 mg 03/24/25 09:00 03/24/25 12:24 Thiamine 100mg Tablet PO 03/26/25 09:01 100 mg DAILY ELIZABETH Administration Discontinued Medications Generic Name Dose Route Start Last Admin Trade Name Freq PRN Reason Stop Dose Admin Droperidol 5 mg 03/24/25 07:51 03/24/25 07:53 Droperidol 5mg/2ml Vial IV 03/24/25 07:52 5 mg ONCE ONE Administration Folic Acid 1 mg 03/24/25 07:14 03/24/25 07:24 Folic Acid 1mg Tablet PO 03/24/25 07:15 Not Given ONCE ONE Multivitamins 10 ml/ Thiamine 1,015 mls @ 150 mls/hr 03/24/25 07:15 03/24/25 08:37 HCl 100 mg/ Magnesium Sulfate IV 03/24/25 14:00 150 mls/hr 2 gm/ Lactated Ringer's .Q6H46M ELIZABETH Administration Lactated Ringer's 1,000 mls @ 999 mls/hr 03/24/25 07:16 03/24/25 07:20 Lactated Ringer's 1000 Ml Bag IV 03/24/25 08:16 999 mls/hr .Q1H1M ONE Administration Iopamidol 75 ml 03/24/25 08:27 03/24/25 08:28 Iopamidol-370 (76%);100ml Bottle IV 03/24/25 08:28 75 ml ONCE ONE Administration Ondansetron HCl 4 mg 03/24/25 07:23 03/24/25 07:25 Ondansetron 4mg/2ml Vial IV 03/24/25 07:24 4 mg ONCE ONE Administration ORDERS Category Date Time Status CT abdomen pelvis w con Stat Cat Scan 03/24/25 07:18 Completed Consult Tool Honing Machine Set Up Operator [CONS] Routine Cons 03/24/25 09:44 Active Acetaminophen Stat Lab 03/24/25 07:16 Completed Activated Partial Thrombo Time Routine Lab 03/24/25 07:16 Completed C-Reactive Protein Stat Lab 03/24/25 07:16 Completed Complete Blood Count Auto Diff Stat Lab 03/24/25 07:16 Completed Comprehensive Metabolic Panel Stat Lab 03/24/25 07:16 Completed Creatine Kinase Stat Lab 03/24/25 07:16 Completed Diarrhea 23 Panel, PCR Stat Lab 03/24/25 07:14 Ordered Drug Screen,Urine Routine Lab 03/24/25 10:45 Completed Erythrocyte Sedimentation Rate Stat Lab 03/24/25 07:16 Completed Ethyl Alcohol Stat Lab 03/24/25 07:16 Completed HIV Combo Stat Lab 03/24/25 07:16 Completed Hepatitis C Ab Qual. W/ RFX Stat Lab 03/24/25 07:16 Completed Lipase Stat Lab 03/24/25 07:16 Completed Magnesium Stat Lab 03/24/25 07:16 Completed Prothrombin Time INR Routine Lab 03/24/25 07:16 Completed Salicylate Stat Lab 03/24/25 07:16 Completed Venous Blood Gas Stat RT 03/24/25 07:14 Completed Medical Decision Narrative: In summary, this 29-year-old male presents to the emergency department today with nausea vomiting diarrhea. On initial evaluation patient is hemodynamically stable afebrile saturating appropriately on room air hyperventilating and retching. Differential diagnosis includes but is not limited to panic attack acute alcohol withdrawal acute intoxication perforated viscus gastroenteritis hepatitis. Based on these concerns, I ordered CBC CMP CK drugs of abuse alcohol level PT/INR EKG VBG lipase. ECG personally interpreted demonstrates normal sinus rhythm no ST elevation ST depression T wave inversions concerning for ischemia. Initial CIWA of 24 Patient received benzodiazepines per CIWA protocol, rally pack 1 L of LR droperidol Zofran for treatment. Labs personally reviewed demonstrate decreased bicarb elevated anion gap leukocytosis, respiratory alkalosis, lactate 3.8, negative Tylenol salicylates alcohol. Minimal elevation in CRP. CT imaging personally interpreted demonstrate thickening of stomach wall. On reevaluation patient has improvement of symptoms no longer hyperventilating or retching. Patient reports he drinks approximately 1/5 of Jesus Christie per week last drink was yesterday evening. Symptoms are consistent with acute alcohol withdrawal. Patient amendable to being mated to the hospital for alcohol withdrawal at this time. I had an interactive conversation with hospital medicine with recommendations to admit to hospital medicine service. Critical Care Critical Care Time Critical Care Time: No
--- NOTE | 2025-03-24 07:08 | ECG_ITS ---
APPROVED REPORT Exam: Resting ECG HR:84 bpm ECG Measurements Heart Rate 84 AXES CO 170 P 72 QRSd 108 QRS 39 QT 372 T 11 QTc 413 Conclusion SINUS RHYTHM INCOMPLETE RIGHT BUNDLE BRANCH BLOCK [90+ ms QRS DURATION, TERMINAL R IN V1/V2, 40+ ms S IN I/aVL/V4/V5/V6] NONSPECIFIC T-WAVE ABNORMALITY BORDERLINE ECG UNCONFIRMED REPORT Electronically signed by : GRIS WHEELER, 03/26/2025 06:36:13
--- NOTE | 2025-03-24 07:18 | CT_ITS ---
PROCEDURE INFORMATION: Exam: CT Abdomen And Pelvis With Contrast Exam date and time: 03/24/2025 8:20 AM Age: 29 years old Clinical indication: Abdominal pain; Additional info: Abdominal pain, HX of colitis. TECHNIQUE: Imaging protocol: Computed tomography of the abdomen and pelvis with contrast. Radiation optimization: All CT scans at this facility use at least one of these dose optimization techniques: automated exposure control; mA and/or kV adjustment per patient size (includes targeted exams where dose is matched to clinical indication); or iterative reconstruction. Contrast material: ISOVUE; Contrast volume: 75 ml; Contrast route: IV; COMPARISON: CT ABDOMEN PELVIS W CON 05/01/2023 7:45 PM FINDINGS: Liver: Normal. No mass. Gallbladder and biliary ducts: Normal. No calcified stones. No ductal dilation. Pancreas: Normal. No ductal dilation. Spleen: Normal. No splenomegaly. Adrenal glands: Normal. No mass. Kidneys and ureters: There is no evidence of renal or ureteral calcifications. Stomach and bowel: Low-attenuation bowel wall thickening is seen throughout the colon consistent with colitis. Differential diagnosis includes infectious and inflammatory etiologies.. Appendix: Normal appendix Intraperitoneal space: Unremarkable. No free air. No significant fluid collection. Vasculature: Unremarkable. No abdominal aortic aneurysm. Lymph nodes: Unremarkable. No enlarged lymph nodes. Urinary bladder: Unremarkable as visualized. Reproductive: Unremarkable as visualized. Bones/joints: Unremarkable. No acute fracture. Soft tissues: Unremarkable. IMPRESSION: Low-attenuation bowel wall thickening is seen throughout the colon consistent with colitis. Differential diagnosis includes infectious and inflammatory etiologies..
[2025-03-24] MEDS: LACTATED RINGERS 1000ML 1,000 ML 999 ML IV (07:20)
[2025-03-24] MEDS: diazePAM 10MG/2ML SYRINGE 10 MG IV (07:20)
--- NOTE | 2025-03-24 07:22 | PC.NURSE ---
I notified Rachel in resp that a green top was sent for a VBG
[2025-03-24] MEDS: ONDANSETRON 4MG/2ML VIAL 4 MG IV (07:25)
--- NOTE | 2025-03-24 07:27 | PC.NURSE ---
Seizure pads were placed on either side of bed.
[2025-03-24 07:29] LABS: VBG Base Excess 0.4 mmol/L (-2.4-2.3); VBG Oxygen Saturation 99.4 % (50-70); VBG PO2 138.9 mmol/L (28-40); VBG Total CO2 21.5 mmol/L (23-27)
[2025-03-24 07:33] LABS: Basophils # 0.1 K/mm3 (0-0.2); Basophils % 0.5 % (0.1-2.0); Eosinophils # 0.1 Kmm3 (0.0-0.4); Eosinophils % 0.4 % (0.1-12.0); Hemoglobin 14.6 g/dL (14.1-18.0); Immature Granulocytes # 0.05 10^3uL; Immature Granulocytes % 0.3 %; Lymphocytes # 1.9 K/mm3 (0.7-4.5); Lymphocytes % 12.4 % (10-50); Mean Corpuscular Hemoglobin 26.2 pg (27.0-31.2); Mean Corpuscular Volume 77.1 fl (80-94); Mean Platelet Volume 10.8 fl (7.4-10.4); Monocytes % 6.7 % (1.7-9.3); Neutrophils % 79.7 % (37.0-80.0); Nucleated Red Blood Cells # 0 10^3/uL; Nucleated Red Blood Cells % 0 %; Platelet Count 243 K/mm3 (142-424); Red Blood Count 5.58 M/mm3 (4.60-6.20); Red Cell Distribution Width 13.5 % (11.5-17.5); Red Cell Distribution Width-SD 37.6 fL; White Blood Count 15.1 K/mm3 (4.8-10.8)
[2025-03-24 07:33] LABS: Lactate Venous 3.8 mmol/L (0.4-2.0); VBG PCO2 18.8 mmol/L (35-51); VBG PH 7.67 mmol/L (7.31-7.41)
--- NOTE | 2025-03-24 07:42 | PC.NURSE ---
pt initial CIWA is 24. spoke with MD. medications given per protocol. pt currently resting in bed @ this time.
--- NOTE | 2025-03-24 07:48 | PC.NURSE ---
I spoke with about blood cultures. She states we do not need cultures at this time.
[2025-03-24 07:49] LABS: Albumin Level 4.7 g/dl (3.5-5.0); Chloride 104 mmol/L (98-107)
[2025-03-24 07:50] LABS: Potassium 3.6 mmoL/L (3.5-5.1); Sodium 138 mmol/L (136-145)
[2025-03-24 07:52] LABS: Alanine Aminotransferase 53 U/L (12-78); Albumin/Globulin Ratio 1.2 (1.1-1.8); Alkaline Phosphatase 78 U/L (38-126); Anion Gap 18.6 mEq/L (5-15); Aspartate Amino Transferase 47 U/L (17-59); Bilirubin,Total 0.8 mg/dl (0.2-1.3); Blood Urea Nitrogen 21 mg/dl (9-20); Carbon Dioxide 19 mmol/L (22.0-30.0); Creatine Kinase 232 U/L (55-170); Creatinine Clearance Estimated 161 mL/min (50-200); Estimated Glomerular Filt Rate 87 ml/min (>60); GFR (African American) 105 ML/MIN (>60); Globulin 3.8 g/dL (1.3-3.2); Total Protein,Serum 8.5 g/dl (6.3-8.2)
[2025-03-24 07:53] LABS: Calcium 10.3 mg/dl (8.4-10.2); Glucose 176 mg/dl (74-100); Lipase 83 U/L (23-300); Magnesium 1.6 mg/dl (1.6-2.3)
[2025-03-24] MEDS: droPERidol 5MG/2ML VIAL 5 MG IV (07:53)
[2025-03-24 07:55] LABS: INR 0.92 (0.9-1.1); Prothrombin Time 10.3 seconds (10.1-12.5)
[2025-03-24 07:58] LABS: C-Reactive Protein 8.9 mg/L (0-4)
[2025-03-24 08:07] LABS: Ethyl Alcohol < 10 mg/dl (0-10)
[2025-03-24] MEDS: IOPAMIDOL-370 (76%);100ML BOTTLE 75 ML IV (08:28)
[2025-03-24] MEDS: SODIUM CHLORIDE 0.9% 10ML SYR (RAD ONLY) 10 ML IV (08:28)
[2025-03-24 08:36] LABS: Erythrocyte Sedimentation Rate 13 mm/hr (0-15); HIV Combo NEGATIVE (Negative)
[2025-03-24] MEDS: MVI, ADULT NO.1 WITH VIT K 10 ML, THIAMINE HCL 100 MG, MAGNESIUM SULFATE 2 GM in LACTAT... 150 ML IV (08:37)
[2025-03-24 08:38] LABS: Acetaminophen < 10 ug/ml (10-30); Salicylate < 1.0 mg/dL (2.0-20.0)
--- NOTE | 2025-03-24 10:42 | PC.NURSE ---
Dr. Silva is on the phone with hospitalist now.
--- NOTE | 2025-03-24 10:59 | P.HP_ITS ---
History of Present Illness *Admission Date: 03/24/25 *Reason for visit:: Alcohol withdrawal *History of present illness: Aries Mendieta is a 29-year-old male with a medical history significant for alcohol use disorder, alcohol withdrawal without seizures, right patellar tendon rupture s/p surgical repair on 03/19/2025 who presents with 1 day onset of nausea/vomiting, diarrhea, abdominal pain, tremors, diaphoresis. Patient states he alternates weeks of drinking alcohol, this week he has been drinking both Jesus Christie and beers multiple times a day with last drink being last night at dinner. He states he had Pasta with his friend last night and did not have any symptoms. He states he woke up at 4 AM this morning with a forementioned symptoms. Of note, patient had been taking oxycodone every 4 hours since right knee surgery for the past week. Last opioid was last night with alcohol. On arrival, patient has similar symptoms with a CIWA of 24. Improved with Valium 10 mg and droperidol 5 mg. Case discussed with ED provider decision was made to admit patient for alcohol, opioid withdrawal. [facility] Disclaimer: The information contained in this section may have been updated after the patient was seen, as this information can be updated by other users. Medical History (Updated 03/24/25 @ 17:42 by Panchito York MD) No significant past medical history No significant past medical history Surgical History (Updated 03/24/25 @ 11:47 by Halley Tapia RN) H/O right knee surgery Family History Other No significant family history Social History (Updated 03/24/25 @ 11:48 by Halley Tapia RN) Smoking Status: Current every day smoker tobacco type: cigarettes packs per day: 0 alcohol intake: current current occupational status: other Travel in the last 8 weeks?: None household members: other housing: other Have you lived/traveled outside US in past 30 days?: No Contact w/someone who lives/traveled outside US past 30 days?: No Exposure to someone with infectious disease in past 14 days?: No Do you have a fever (greater than 100.4 F or 38 C)?: No Have you tested positive for COVID-19?: No Exposed to someone with COVID-19 in past 14 days?: No Do you have a sore throat?: No Do you have a cough?: No Do you have any weakness?: Yes Do you have any diarrhea?: No Are you experiencing any unusual bleeding?: No Do you have any muscle aches/pain?: No Do you have any abdominal pain?: Yes Are you experiencing loss of taste or smell?: No Other Medical History Have you received the Flu Vaccine for this season: No Have you received the Pneumonia Vaccine: No Meds Home Medications and Allergies Home Medications ?Medication ?Instructions ?Recorded ?Confirmed ?Type hydrocodone 5 mg-acetaminophen 325 1 tab PO Q4H PRN po st op pain #42 03/19/25 Rx mg tablet tabs New Prescriptions to Start Prescriptions: Allergies Allergy/AdvReac Type Severity Reaction Status Date / Time No Known Allergies Allergy Verified 03/19/25 11:39 Exam Data for Last 24 hours Vital signs and Labs for Last 24 Hours: Temp Pulse Resp BP Pulse Ox 98.5 F 68 20 181/110 H 96 03/24/25 07:15 03/24/25 10:30 03/24/25 10:30 03/24/25 10:30 03/24/25 10:30 Laboratory Results - last 24 hr 03/24/25 07:14: VBG pH 7.67 H, VBG pCO2 18.8 L, VBG pO2 138.9 H, VBG HCO3 21.0 L , VBG Total CO2 21.5 L, VBG O2 Saturation 99.4 H, VBG Base Excess 0.4, VBG Lactic Acid 3.8 H 03/24/25 07:16: WBC 15.1 H, RBC 5.58, Hgb 14.6, Hct 43.0, MCV 77.1 L, MCH 26.2 L , MCHC 34.0, RDW 13.5, Plt Count 243, MPV 10.8 H, Neut % (Auto) 79.7, Lymph % (Auto) 12.4, [place] % (Auto) 6.7, Eos % (Auto) 0.4, Baso % (Auto) 0.5, Neut # (Auto) 12.0 H, Lymph # (Auto) 1.9, [place] # (Auto) 1.0, Eos # (Auto) 0.1, Baso # (Auto) 0.1, ESR 13, PT 10.3, INR 0.92, APTT 22.0 L, Sodium 138, Potassium 3.6, Chloride 104, Carbon Dioxide 19 L, Anion Gap 18.6 H, BUN 21 H, Creatinine 1.00, Estimated Creat Clear 161, Estimated GFR 87, Est GFR ( Amer) 105, Glucose 176 H, Calcium 10.3 H, Magnesium 1.6, Total Bilirubin 0.8, AST 47, ALT 53, Alkaline Phosphatase 78, Total Creatine Kinase 232 H, C-Reactive Protein 8.9 H, Total Protein 8.5 H, Albumin 4.7, Globulin 3.8 H, Albumin/Globulin Ratio 1.2, Lipase 83, Salicylates < 1.0 L, Acetaminophen < 10 L, Plasma/Serum Alcohol < 10, HIV Ag/Ab Combo Qual Negative I & O for Last 24 hours: Intake & Output 03/21/25 03/22/25 03/23/25 03/24/25 23:59 23:59 23:59 23:59 Weight 106.594 kg Constitutional Constitutional: no acute distress and obese *Routine HEENT Exam Head: Present normocephalic Eye: Present EOMI and PERRL ENT: Present mucous membranes moist *Routine Neck Exam Neck: Present supple; Absent lymphadenopathy *Routine Respiratory Exam Respiratory: Present CTA bilaterally *Routine Cardiovascular Exam Cardiovascular: Present RRR *Routine Abdominal Exam Abdominal: Present soft and normoactive bowel sounds; Absent tenderness *Routine Rectal Exam Rectal:: deferred *Routine Genitalia Exam Genitalia:: deferred *Routine Extremities Exam Extremities: Absent cyanosis, clubbing or edema *Routine Skin Exam Skin: Present warm; Absent rash *Routine Neurological Exam Neurological: Present alert and oriented X3 Assessment and Plan *Assessment and plan (1) Alcohol withdrawal: Status: Acute Category: Medical Code(s): F10.939 - Alcohol use, unspecified with withdrawal, unspecified (2) Patellar tendon rupture: Status: Acute Qualifiers: Encounter type: initial encounter Laterality: right Qualified Code(s): S86.811A - Strain of other muscle(s) and tendon(s) at lower leg level, right leg, initial encounter Category: Medical Code(s): S86.819A - Strain of other muscle(s) and tendon(s) at lower leg level, unspecified leg, initial encounter (3) Opioid withdrawal: Status: Acute Category: Medical Code(s): F11.93 - Opioid use, unspecified with withdrawal Plan Aries Mendieta is a 29-year-old male with a medical history significant for alcohol use disorder, alcohol withdrawal without seizures, right patellar tendon rupture s/p surgical repair on 03/19/2025 who presents with 1 day onset of nausea/vomiting, diarrhea, abdominal pain, tremors, diaphoresis. Patient states he alternates weeks of drinking alcohol, this week he has been drinking both Jesus Christie and beers multiple times a day with last drink being last night at dinner. He states he had Pasta with his friend last night and did not have any symptoms. He states he woke up at 4 AM this morning with a forementioned symptoms. Of note, patient had been taking oxycodone every 4 hours since right knee surgery for the past week. Last opioid was last night with alcohol. On arrival, patient has similar symptoms with a CIWA of 24. Improved with Valium 10 mg and droperidol 5 mg. Case discussed with ED provider decision was made to admit patient for alcohol, opioid withdrawal. #Alcohol use disorder #Alcohol withdrawal #Opioid withdrawal ? Presented with 1 day onset of nausea/vomiting, diarrhea, abdominal pain, tremors, diaphoresis. Seems to be combination of both alcohol, opioid w ithdrawal. Initial CIWA 24. ? On CIWA protocol, Valium as needed. ? Will schedule IV phenobarbital 130 mg tonight. ? Will hold off on starting Suboxone due to concomitant benzodiazepine, phenobarbital. However, if withdrawal symptoms are refractory will consider Suboxone. ? Continuous cardiac telemetry. ? Finish rally pack. Daily multivitamins. #Right patellar tendon rupture s/p surgical repair ? [place] as needed. Continue follow-ups with orthopedic surgery. Full code DVT prophylaxis: Lovenox 40 mg
--- NOTE | 2025-03-24 11:19 | PC.NURSE ---
report called to Miquel
[2025-03-24 11:31] LABS: Reflex Lactic Add Lactic Reflex
--- NOTE | 2025-03-24 11:33 | PC.NURSE ---
arrived by w/c from ED
[2025-03-24 12:11] LABS: Barbiturates Screen,Urine Negative ng/ml (<200)
[2025-03-24 12:12] LABS: Amphetamine/Metha Screen,Urine Negative ng/ml (<1000); Benzodiazepines Screen,Urine Positive ng/ml (<200)
[2025-03-24 12:13] LABS: Cannabinoid Screen,Urine Positive ng/ml (<50); Methadone Screen,Urine Negative ng/ml (<300)
[2025-03-24 12:14] LABS: Cocaine Screen,Urine Negative ng/ml (<300)
[2025-03-24 12:15] LABS: Opiate Screen,Urine Negative ng/ml (<300); Phencyclidine Screen,Urine Negative ng/ml (<25)
[2025-03-24] MEDS: FOLIC ACID 1MG TABLET 1 MG PO (12:24)
[2025-03-24] MEDS: THIAMINE 100MG TABLET 100 MG PO (12:24)
[2025-03-24 12:25] LABS: Lactic Acid Follow Up (RFLX 1) 2.5 mmol/L (0.7-2.1)
[2025-03-24 13:30] LABS: Hepatitis C Ab Qual. W/ RFX NEGATIVE (Negative)
[2025-03-24 13:55] LABS: Reflex Lactic (2 hrs) Add Lactic Reflex
[2025-03-24 14:47] LABS: Lactic Acid Follow up (RFLX 2) 2.7 mmol/L (0.7-2.1)
[2025-03-24] MEDS: PHENobarbital SOD 65MG/ML INJ 130 MG IV (21:43)
[2025-03-25] VITALS: BP 121/70; PULSE 65; PULSE 85; RESP 16; TEMP 36.3; O2SAT 100
[2025-03-25 04:00] VITALS: BP 124/68; PULSE 76; PULSE 85; RESP 18; TEMP 36.6; O2SAT 97; BMI 33.5
--- NOTE | 2025-03-25 05:45 | PC.NURSE ---
Pt is pleasant, rested well during shift. v/s, ox4, RA. Cwall-0 during shift. No acute events to report. Plan of care ongoing.
[2025-03-25 05:56] LABS: Basophils % 0.2 % (0.1-2.0); Eosinophils # 0.1 Kmm3 (0.0-0.4); Eosinophils % 0.8 % (0.1-12.0); Hematocrit 41.4 % (42.0-52.0); Hemoglobin 13.3 g/dL (14.1-18.0); Immature Granulocytes # 0.02 10^3uL; Immature Granulocytes % 0.2 %; Lymphocytes # 1.9 K/mm3 (0.7-4.5); Lymphocytes % 21.6 % (10-50); Mean Corpuscular HGB Conc 32.1 g/dL (31.8-35.4); Mean Corpuscular Hemoglobin 25.1 pg (27.0-31.2); Mean Corpuscular Volume 78.3 fl (80-94); Mean Platelet Volume 10.7 fl (7.4-10.4); Monocytes # 0.9 K/mm3 (0.1-1.0); Monocytes % 10.5 % (1.7-9.3); Neutrophils # 5.7 K/mm3 (1.8-7.8); Neutrophils % 66.7 % (37.0-80.0); Nucleated Red Blood Cells # 0 10^3/uL; Nucleated Red Blood Cells % 0 %; Platelet Count 209 K/mm3 (142-424); Red Blood Count 5.29 M/mm3 (4.60-6.20); Red Cell Distribution Width 13.8 % (11.5-17.5); Red Cell Distribution Width-SD 39.4 fL; White Blood Count 8.6 K/mm3 (4.8-10.8)
[2025-03-25 06:05] LABS: Albumin Level 4.2 g/dl (3.5-5.0); Chloride 98 mmol/L (98-107); Potassium 3.4 mmoL/L (3.5-5.1); Sodium 135 mmol/L (136-145)
[2025-03-25 06:07] LABS: Blood Urea Nitrogen 14 mg/dl (9-20); Creatinine Clearance Estimated 185 mL/min (50-200); Estimated Glomerular Filt Rate 87 ml/min (>60); GFR (African American) 105 ML/MIN (>60)
[2025-03-25 06:08] LABS: Alanine Aminotransferase 39 U/L (12-78); Albumin/Globulin Ratio 1.2 (1.1-1.8); Alkaline Phosphatase 69 U/L (38-126); Anion Gap 12.4 mEq/L (5-15); Aspartate Amino Transferase 34 U/L (17-59); Bilirubin,Total 1.4 mg/dl (0.2-1.3); Calcium 9.6 mg/dl (8.4-10.2); Carbon Dioxide 28 mmol/L (22.0-30.0); Globulin 3.5 g/dL (1.3-3.2); Glucose 121 mg/dl (74-100); Magnesium 1.9 mg/dl (1.6-2.3); Total Protein,Serum 7.7 g/dl (6.3-8.2)
[2025-03-25 08:00] VITALS: BP 132/85; PULSE 70; PULSE 84; RESP 16; TEMP 36.7; O2SAT 97
[2025-03-25] MEDS: THIAMINE 100MG TABLET 100 MG PO (08:28)
[2025-03-25] MEDS: FOLIC ACID 1MG TABLET 1 MG PO (08:28)
[2025-03-25] MEDS: POTASSIUM CHLORIDE 20MEQ TAB 40 MEQ PO ×2 (08:28→12:15)
[2025-03-25] MEDS: ENOXAPARIN 40MG/0.4ML SYRINGE 40 MG SUBCUT (08:29)
--- NOTE | 2025-03-25 09:50 | EXP.DC.SUM ---
General Admission date:: 03/24/25 Discharge date: 03/25/25 HPI HPI HPI: Aries Mendieta is a 29-year-old male with a medical history significant for alcohol use disorder, alcohol withdrawal without seizures, right patellar tendon rupture s/p surgical repair on 03/19/2025 who presents with 1 day onset of nausea/vomiting, diarrhea, abdominal pain, tremors, diaphoresis. Patient states he alternates weeks of drinking alcohol, this week he has been drinking both Jesus Christie and beers multiple times a day with last drink being last night at dinner. He states he had Pasta with his friend last night and did not have any symptoms. He states he woke up at 4 AM this morning with a forementioned symptoms. Of note, patient had been taking oxycodone every 4 hours since right knee surgery for the past week. Last opioid was last night with alcohol. On arrival, patient has similar symptoms with a CIWA of 24. Improved with Valium 10 mg and droperidol 5 mg. Case discussed with ED provider decision was made to admit patient for alcohol, opioid withdrawal. Hospital Course Hospital Course Hospital Course: Aries Mendieta is a 29-year-old male with a medical history significant for alcohol use disorder, alcohol withdrawal without seizures, right patellar tendon rupture s/p surgical repair on 03/19/2025 who presents with 1 day onset of nausea/vomiting, diarrhea, abdominal pain, tremors, diaphoresis. Patient states he alternates weeks of drinking alcohol, this week he has been drinking both Jesus Christie and beers multiple times a day with last drink being last night at dinner. He states he had Pasta with his friend last night and did not have any symptoms. He states he woke up at 4 AM this morning with a forementioned symptoms. Of note, patient had been taking oxycodone every 4 hours since right knee surgery for the past week. Last opioid was last night with alcohol. On arrival, patient has similar symptoms with a CIWA of 24. Improved with Valium 10 mg and droperidol 5 mg. Case discussed with ED provider decision was made to admit patient for alcohol, opioid withdrawal. #Alcohol use disorder #Alcohol withdrawal #Opioid withdrawal ? Presented with 1 day onset of nausea/vomiting, diarrhea, abdominal pain, tremors, diaphoresis. Seems to be combination of both alcohol, opioid withdrawal. Initial CIWA 24. CIWA's overnight consistently 0. Patient denies nausea/vomiting, diarrhea, abdominal pain, tremors, diaphoresis at this time or overnight. Patient's vital signs stable during admission. ? Patient has not required diazepam during admission. ? Patient received phenobarbital 130 mg IV x 1. ? Continuous cardiac telemetry during stay, NSR. ? Recommend daily multivitamins at discharge. ? Kylah with peers support discussed with patient treatment options, patient denies alcohol abuse. Resources given to patient. #Right patellar tendon rupture s/p surgical repair ? [place] as needed. Follow-up with orthopedic surgery made for , 03/29 at 2:15 PM. ? Discussed with patient only taking [place] as needed, not drinking alcohol while taking opioid medication. Total time spent on discharge 28 minutes in counseling, documentation, chart review, and direct care with patient. Exam Data for Last 24 hours Vital signs and Labs for Last 24 Hours: Temp Pulse Resp BP Pulse Ox O2 Del Method 98.1 F 84 16 132/85 97 Room Air 03/25/25 08:00 03/25/25 08:00 03/25/25 08:00 03/25/25 08:00 03/25/25 08:00 03/25/25 08:00 Laboratory Results - last 24 hr 03/24/25 07:16: HCV Ab KASEY w/Rflx PCR Qn Negative 03/24/25 10:45: Urine Opiates Screen Negative, Urine Methadone Screen Negative, Ur Barbituates Screen Negative, Ur Phencyclidine Scrn Negative, Ur Amphetamines Screen Negative, U Benzodiazepines Scrn Positive H, Urine Cocaine Screen Negative, U Marijuana (THC) Screen Positive H 03/24/25 11:50: Lactate 2.5 H 03/24/25 14:25: Lactate 2.7 H 03/25/25 05:37: WBC 8.6 D, RBC 5.29, Hgb 13.3 L, Hct 41.4 L, MCV 78.3 L, MCH 25.1 L, MCHC 32.1, RDW 13.8, Plt Count 209, MPV 10.7 H, Neut % (Auto) 66.7, Lymph % (Auto) 21.6, [place] % (Auto) 10.5 H, Eos % (Auto) 0.8, Baso % (Auto) 0.2, Neut # (Auto) 5.7, Lymph # (Auto) 1.9, [place] # (Auto) 0.9, Eos # (Auto) 0.1, Baso # (Auto) 0.0, Sodium 135 L, Potassium 3.4 L, Chloride 98, Carbon Dioxide 28, Anion Gap 12.4, BUN 14 D, Creatinine 1.00, Estimated Creat Clear 185, Estimated GFR 87, Est GFR ( Amer) 105, Glucose 121 H D, Calcium 9.6, Magnesium 1.9 D, Total Bilirubin 1.4 H, AST 34 D, ALT 39 D, Alkaline Phosphatase 69, Total Protein 7.7, Albumin 4.2 D, Globulin 3.5 H, Albumin/Globulin Ratio 1.2 I & O for Last 24 hours: Intake & Output 03/22/25 03/23/25 03/24/25 03/25/25 23:59 23:59 23:59 23:59 Intake Total 360 / 360 Output Total 800 / 800 Balance -440 / -440 Weight 121.194 kg 122.334 kg Constitutional Constitutional: no acute distress and cooperative *Routine HEENT Exam Head: Present normocephalic Eye: Present EOMI and PERRL ENT: Present mucous membranes moist *Routine Neck Exam Neck: Present supple and full ROM *Routine Respiratory Exam Respiratory: Present CTA bilaterally, normal respiratory effort, able to speak in complete sentences and symmetric chest movement *Routine Cardiovascular Exam Cardiovascular: Present RRR, Normal S1 and Normal S2; Absent murmur *Routine Abdominal Exam Abdominal: Present soft and normoactive bowel sounds; Absent tenderness or distended *Routine Extremities Exam Extremities: Present full ROM; Absent tenderness *Routine Skin Exam Skin: Present intact and dry *Routine Neurological Exam Neurological: Present alert and oriented X3 Results Data Completed and Pending Labs on day of discharge: Labs from last 24 hours 03/25/25 03/24/25 03/24/25 05:37 14:25 11:50 WBC 8.6 D RBC 5.29 Hgb 13.3 L Hct 41.4 L MCV 78.3 L MCH 25.1 L MCHC 32.1 RDW 13.8 Plt Count 209 MPV 10.7 H Neut % (Auto) 66.7 Lymph % (Auto) 21.6 [place] % (Auto) 10.5 H Eos % (Auto) 0.8 Baso % (Auto) 0.2 Neut # (Auto) 5.7 Lymph # (Auto) 1.9 [place] # (Auto) 0.9 Eos # (Auto) 0.1 Baso # (Auto) 0.0 Sodium 135 L Potassium 3.4 L Chloride 98 Carbon Dioxide 28 Anion Gap 12.4 BUN 14 D Creatinine 1.00 Estimated Creat Clear 185 Estimated GFR 87 Est GFR ( Amer) 105 Glucose 121 H D Lactate 2.7 H 2.5 H Calcium 9.6 Magnesium 1.9 D Total Bilirubin 1.4 H AST 34 D ALT 39 D Alkaline Phosphatase 69 Total Protein 7.7 Albumin 4.2 D Globulin 3.5 H Albumin/Globulin Ratio 1.2 Urine Opiates Screen Urine Methadone Screen Ur Barbituates Screen Ur Phencyclidine Scrn Ur Amphetamines Screen U Benzodiazepines Scrn Urine Cocaine Screen U Marijuana (THC) Screen HCV Ab KASEY w/Rflx PCR Qn 03/24/25 03/24/25 10:45 07:16 WBC RBC Hgb Hct MCV MCH MCHC RDW Plt Count MPV Neut % (Auto) Lymph % (Auto) [place] % (Auto) Eos % (Auto) Baso % (Auto) Neut # (Auto) Lymph # (Auto) [place] # (Auto) Eos # (Auto) Baso # (Auto) Sodium Potassium Chloride Carbon Dioxide Anion Gap BUN Creatinine Estimated Creat Clear Estimated GFR Est GFR ( Amer) Glucose Lactate Calcium Magnesium Total Bilirubin AST ALT Alkaline Phosphatase Total Protein Albumin Globulin Albumin/Globulin Ratio Urine Opiates Screen Negative Urine Methadone Screen Negative Ur Barbituates Screen Negative Ur Phencyclidine Scrn Negative Ur Amphetamines Screen Negative U Benzodiazepines Scrn Positive H Urine Cocaine Screen Negative U Marijuana (THC) Screen Positive H HCV Ab KASEY w/Rflx PCR Qn Negative Meds Home Medications and Allergies Home Medications ?Medication ?Instructions ?Recorded ?Confirmed ?Type hydrocodone 5 mg-acetaminophen 325 1 tab PO Q4H PRN post op pain #42 03/19/25 04/01/25 Rx mg tablet tabs New Prescriptions to Start Prescriptions: Allergies Allergy/AdvReac Type Severity Reaction Status Date / Time No Known Allergies Allergy Verified 04/01/25 14:12 Discharge Plan Disposition Patient Disposition: Home, Self-Care Condition: Fair Follow up Plan Follow up with: Alfredito Domingo DO [Staff Physician, Orthopedics] - 03/28/25 2:15 pm Angie Chavis APRN [Nurse Practitioner, Family Practice] - 04/01/25 11:00 am Prescriptions/Medication Reconciliation: Continued hydrocodone-acetaminophen 5-325 mg tablet 1 tab PO Q4H PRN (Reason: post op pain) Qty: 42 0RF Problem Reconciliation Problems Reviewed?: Yes Patient Discharge Instructions ACTIVITY: Continue current activity DIET: continue same diet Patient Instructions: Alcohol and Stress: There are Safer Ways to [place], Alcohol Use Disorder (Alternative Therapy), Alcohol Use Disorder, Alcohol Withdrawal Print Language: Welsh Providers Primary Care Provider: Provider,Referral Admit Provider: Panchito York Attending Provider: Panchito York
[2025-03-25 10:46] LABS: Lactate Venous 1.5 mmol/L (0.4-2.0); VBG Base Excess 2.4 mmol/L (-2.4-2.3); VBG HCO3 26.3 mmol/L (23-30); VBG Oxygen Saturation 79.5 % (50-70); VBG PH 7.46 mmol/L (7.31-7.41); VBG PO2 41.4 mmol/L (28-40); VBG Total CO2 27.5 mmol/L (23-27)
--- NOTE | 2025-03-25 14:50 | PEERSUPPORT ---
Peer Support Note Patient Information Patient Information: DOS: 03/25/2025 ? Pt stated he does not have an issue with drinking, rather than this being a mixture of his recent surgery on his knee, current medications, with the alcohol, and a Colitis flare up. ? Stated he does not drink daily and limited when he does drink. ? Ps educated him on risk of alcohol with controlled narcotics and health. ? Pt receptive positive attitude and understanding. ? Ps provided pt with list of local outpatient/inpatient treatment options for specialized treatment for chemical and substance use including [facility]. ? Ps provided contact information for any ongoing recovery focused support or guidance.?
--- NOTE | 2025-03-27 10:09 | SW/DCPLANNER ---
Phone patient x2. Left voicemail with name and call back number each time. Leandro [employer]
== END 2025-03-25 14:26 | disposition home or self-care (01) ==
LOC: ER 08:31 → 2ND 10:53
PROVIDERS: Admitting Provider Student in an Organized Health Care Education/Training Program; Emergency Provider Student in an Organized Health Care Education/Training Program; Visit Provider Student in an Organized Health Care Education/Training Program
DX: F10.139 Alcohol abuse with withdrawal, unspecified (principal); F11.93 Opioid use, unspecified with withdrawal; S86.811A Strain of other muscle(s) and tendon(s) at lower leg level, right leg, initial encounter; R10.9 Unspecified abdominal pain; F17.210 Nicotine dependence, cigarettes, uncomplicated; X58.XXXA Exposure to other specified factors, initial encounter; Y92.89 Other specified places as the place of occurrence of the external cause
CPT/HCPCS: 96365; 96366; 96375; 36415; 74177; 80053; 80307; 80320; 80329; 82550; 82803; 83605; 83690; 83735; 85025; 85610; 85651; 85730; 86140; 86803; 87389; 93005; G0378; J1650; J1790; J2405; J2560; J3360; J3411; J3475; J7120; Q9967

== ENCOUNTER 2025-04-25 09:24 | Outpatient (CLI) | payer MEDICAID, SELFPAY ==
--- NOTE | 2025-04-25 09:27 | XR_ITS ---
FINAL REPORT CLINICAL HISTORY: right knee fx, fall on February 21 COMPARISON: 02/22/2025 FINDINGS: Three views of the right knee were obtained. Patella Kelsey again noted. Soft tissue swelling at the base of the patellar tendon. Cortical indistinctness along the inferior patella is likely reflective of patellar tendon injury. Dense curvilinear calcification along the medial femoral condyle is compatible with old ligament injury. There is no acute fracture. IMPRESSION: Persistent changes of patellar abnormality suggesting patellar tendon attachment injury. Reviewed, Interpreted and Dictated by Chaz Mclaughlin MD Transcribed by Melani Cordero Authenticated and [facility]
== END 2025-04-25 23:59 | disposition home or self-care (01) ==
LOC: RAD 09:25
PROVIDERS: PCP Nurse Practitioner Family; Visit Provider Orthopaedic Surgery
DX: R93.6 Abnormal findings on diagnostic imaging of limbs (principal); S82.001A Unspecified fracture of right patella, initial encounter for closed fracture
CPT/HCPCS: 73562

== ENCOUNTER 2025-05-30 10:59 | Outpatient (CLI) | payer MEDICAID, SELFPAY ==
--- NOTE | 2025-05-30 11:00 | XR_ITS ---
FINAL REPORT TECHNIQUE: 4 views right knee CLINICAL HISTORY: Right patella tear repair march 2025 COMPARISON: None available FINDINGS: AP, lateral and oblique views of the right knee were obtained. There is no prior exam for comparison. There is no acute osseous abnormality of the right knee. Patella annel is present. There is marked thickening of the patellar tendon as well as prepatellar edema. A recurrent tear of the patellar tendon is not excluded. The soft tissues are normal. There is no joint effusion. IMPRESSION: Marked thickening of the patellar tendon and prepatellar edema in this patient with history of patellar tendon repair. Recommend direct comparison with prior images or correlation with MRI for further evaluation. Reviewed, Interpreted and Dictated by Nicole Young MD Transcribed by Sammie Mccord Authenticated and [facility]
== END 2025-05-30 23:59 | disposition home or self-care (01) ==
LOC: RAD 11:00
PROVIDERS: Visit Provider Orthopaedic Surgery
DX: M25.561 Pain in right knee (principal); R93.6 Abnormal findings on diagnostic imaging of limbs; R60.0 Localized edema; Z98.890 Other specified postprocedural states
CPT/HCPCS: 73562

== ENCOUNTER 2025-06-27 11:59 | Outpatient (RCR) | payer MEDICAID, SELFPAY ==
--- NOTE | 2025-06-28 09:07 | [facility].PTOPEV ---
PT Evaluation Rehab PT Outpatient Evaluation Start: 06/27/25 13:02 Freq: Status: Active Protocol: Document 06/27/25 13:03 SALVADOR (Rec: 06/27/25 14:53 SALVADOR [id number]) E-signed By Blossom Howe, PT Outpatient Therapy Subjective History Subjective History This is an initial PT evaluation for 29 y/o male, Aries Mendieta ([place]), who presents to PT for a right patellar tendon rupture s/p surgical repair on 2024. Pt is 14 weeks out from surgery. Pt reports he was referred to physical therapy because of his quad strength not allowing full active knee extension. Pt reports no other post-surgical complaints. Pt reports he has no concerns with bending his knee or straightening knee passively. Pt denies knee pain but reports a tightness sensation in quad muscle during active knee extension. Pt ambulatory without AD or knee brace. No antalgic gait noted. Occupation: Working full-time as layout artist. New diagnosis of No cancer in past 12 months? Chief Complaint Weakness Prior Functional None Limitations Current Functional Standing,Squatting,Recreation Activity,Walking,Balance, Limitations Bending/Stooping Hip/Knee Eval Assistive Device Assistive Devices None / NA MMT right Hip Flexion Strength 4 Good Grade Hip Abduction 4 Good Strength Grade Hip Adduction 4 Good Strength Grade Hip Extension 4 Good Strength Grade Knee Extension 2 Poor Strength Grade Knee Flexion 4+ Good+ Strength Grade ROM Knee Extension 0 Active Range of Motion (degrees) Knee Extension 0 Passive Range of Motion (degrees) Knee Flexion Active 125 Range of Motion ( degrees) Lower Extremity Functional Index Activities Today, do you or would you have any difficulty at all with: a.Any of your usual A little bit of difficulty work, housework or school activities b. Your usual A little bit of difficulty hobbies, recreational or sporting activities c. Getting into or Extreme difficulty or unable to perform activity out of the bath d. Walking between Extreme difficulty or unable to perform activity rooms e. Putting on your Extreme difficulty or unable to perform activity shoes or socks f. Squatting Quite a bit of difficulty g. Lifting an object No difficulty , like a bag of groceries from the floor h. Performing light No difficulty activities around your home i. Performing heavy A little bit of difficulty activities around your home j. Getting into or No difficulty out of a car k. Walking 2 blocks No difficulty l. Walking a mile No difficulty m. Going up or down A little bit of difficulty 10 stairs (about 1 flight of stairs) n. Standing for 1 No difficulty hour o. Sitting for 1 No difficulty hour p. Running on even Quite a bit of difficulty ground q. Running on uneven Quite a bit of difficulty ground r. Making sharp Moderate difficulty turns while running fast s. Hopping Quite a bit of difficulty t. Rolling over in No difficulty bed LEFI Score Lower Extremity 50 Functional Index Score Outpatient Therapy Assessment Impairments Problems/ Impaired Range of Motion,Impaired Strength,Impaired Impairmments Transfers,Impaired Gait Pattern,Impaired Lifting, Impaired Stepping on Uneven Surface,Impaired Squatting, Impaired Bending Prognosis Rehab Potential Good Comment Pt presents 14 weeks s/p right patellar tendon rupture s/p surgical repair on 03/19/2025.Pt presents with impaired quadriceps strength. Pt not able to complete full AROM when performing a LAQ. There is visible mm atrophy of the R VMO. Pt demo'd impaired TKE during swing through-heel strike d/t this strength deficit. Pt would benefit from skilled OP PT to address this deficit and return to PLOF. Clinical Impression Consistent with Yes Diagnosis PT Patient Goals PT Patient Goals PT Short Term In 4 weeks, pt will: Patient Goals 1) Improve R knee quad strength by 1/5 grade to address quad lag. 2) Improve LEFS to score of 60/80 to improve LE functioning. 3) Verbalize compliance with home exercise program maximize positive post-surgical outcomes. 4) Verbalize feeling at least 45% improved since IE. PT Retirement Patient LTG: Goals In 8 weeks, pt will: 1) Improve L knee AROM to 0 degrees extension in open chain. 2) Demo R hip MMT of 5/5 globally to improve functioning. 3) Demo R quad strength of 5/5 to return to PLOF. 4) Negotiate 12 6 stair steps with RLE leading to improve community navigation. 5) Improve LEFS to score of 70/80 to improve LE functioning and return to PLOF 6) Verbalize compliance with home exercise program maximize positive post-surgical outcomes. 7) Demo 10 squats to demo functional knee AROM. Outpatient Therapy Plan of Care Treatment Plan May Include Therapeutic Exercise Yes Including Home Exercise Program Manual Therapy Yes Techniques Neuromuscular Re- Yes education Therapeutic Yes Activities to Return to Previous Functional/Work Level Gait Training Yes ADL/Self Care Yes Education Dry Needling Yes Thermal Modalities Yes Electrical Yes Stimulation Ultrasound/ Yes Phonophoresis Orthotics/Bracing/ Yes Splinting Vasopneumatic Yes Compression Pump Massage Yes Eval/Re-Eval Yes Frequency Times per week 2-3x weekly Duration Number of Weeks 6-8 weeks Addendums This patient is a No candidate for social or vocational rehab ? Patient/Guardian Yes verbally acknowledges understanding of treatment program and consents to further treatment? Patient/Guardian Yes verbally acknowledges understanding of diagnosis, prognosis and goals for treatment? Eval Complexity PT Charges 30733 - Moderate Complexity Shoulder/Elbow Eval Shoulder Objective Measurements Elbow Objective Measurements PHYSICIAN CERTIFICATION: I certify the specified therapy services for Aries Mendieta are required, authorized, and reviewed every 30 days.
== END 2025-06-27 23:59 | disposition home or self-care (01) ==
LOC: PT 11:59
PROVIDERS: Visit Provider Orthopaedic Surgery
DX: S86.811A Strain of other muscle(s) and tendon(s) at lower leg level, right leg, initial encounter (principal)
CPT/HCPCS: 97162

== ENCOUNTER 2025-07-18 16:00 | Outpatient (RCR) | payer MEDICAID, SELFPAY | END 2025-07-18 23:59 | disposition home or self-care (01) | LOC: PT 16:00 | PROVIDERS: Visit Provider Orthopaedic Surgery | DX: S86.811A Strain of other muscle(s) and tendon(s) at lower leg level, right leg, initial encounter (principal) | CPT/HCPCS: 97110; 97112 ==